=== PATIENT | male | born 1950 | race African-American/Black ===

== ENCOUNTER 2022-09-27 11:09 | Emergency (ER) | payer MEDICARE ==
[2022-09-27] MEDS ORDERED: cefTRIAXone (ROCEPHIN) 1 GM VIAL ONE (12:27)
[2022-09-27 12:33] LABS: #Eosinphils 0.1 10x3/uL (0.0-0.5); #Monocytes 0.9 10x3/uL (0.0-1.1); #Neutrophils 6.3 10x3/uL (1.5-8.4); %Basophils 0.2 % (0.0-2.0); %Eosinophils 1.2 % (0.0-6.0); %Monocytes 10.8 % (0.0-10.0); %Neutrophils 76.7 % (40.0-75.0); Hematocrit 36.8 % (38.8-50.0); Hemoglobin 12.4 g/dL (13.5-17.5); Mean Corpuscular HGB CONC 33.7 g/dL (32.0-36.0); Mean Corpuscular Hemoglobin 29.9 pg (27.0-33.0); Mean Corpuscular Volume 88.7 fl (81.2-95.1); Mean Platelet Volume 9.9 fl (7.4-10.4); Platelet Count 199 10x3/uL (150-450); RBC Distribution Width 12.4 % (11.5-14.5); Red Blood Cell (RBC) Count 4.15 10x6/uL (4.32-5.72); White Blood Cell (WBC) Count 8.3 10x3/uL (3.5-10.5)
[2022-09-27 12:49] LABS: ALT (SGPT) 45 U/L (8-55); AST (SGOT) 34 U/L (5-34); Albumin 3.8 g/dL (3.4-4.8); Alkaline Phosphatase 91 U/L (40-110); Anion Gap 16 mmol/L (10-20); BUN (Urea Nitrogen) 17 mg/dL (8.4-25.7); Bilirubin, Total 0.5 mg/dL (0.2-1.2); Calc. Creatinine Clearance 0 mL/min (70-130); Calcium 9.1 mg/dL (7.8-10.44); Carbon Dioxide 26 mmol/L (23-31); Chloride 102 mmol/L (98-107); Estimated GFR 48; Globulin 4.1 g/dL (2.4-3.5); Glucose 94 mg/dL (83-110); Potassium 4.9 mmol/L (3.5-5.1); Protein, Total 7.9 g/dL (5.8-8.1); Sodium 139 mmol/L (136-145)
== END 2022-09-27 14:42 | disposition home or self-care (01) ==
LOC: CSHERS 11:09
DX: L02.11 Cutaneous abscess of neck (principal)
CPT/HCPCS: 80053; 85025; 87070; 87205; 90471; 96365; J0696

== ENCOUNTER 2022-09-28 10:37 | Day surgery (SDC) | payer MEDICARE ==
[2022-09-28] MEDS ORDERED: cefTRIAXone (ROCEPHIN) 1 GM VIAL ONE (10:57)
== END 2022-09-28 12:05 | disposition home or self-care (01) ==
LOC: CSHSDC/OP 10:37
PROVIDERS: ATTEND Nurse Practitioner Family
DX: L02.91 Cutaneous abscess, unspecified (principal)
CPT/HCPCS: J0696

== ENCOUNTER 2022-10-01 10:31 | Day surgery (SDC) | payer MEDICARE ==
[2022-10-01] MEDS ORDERED: cefTRIAXone (ROCEPHIN) 1 GM VIAL ONE (11:17)
== END 2022-10-01 11:55 | disposition home or self-care (01) ==
LOC: CSHSDC/OP 10:31
PROVIDERS: ATTEND Pathology Anatomic Pathology & Clinical Pathology
DX: L02.91 Cutaneous abscess, unspecified (principal)
CPT/HCPCS: J0696

== ENCOUNTER 2022-10-02 10:33 | Day surgery (SDC) | payer MEDICARE ==
[2022-10-02] MEDS ORDERED: cefTRIAXone (ROCEPHIN) 1 GM VIAL ONE (10:48)
== END 2022-10-02 12:10 | disposition home or self-care (01) ==
LOC: CSHSDC/OP 10:33
PROVIDERS: ATTEND Pathology Anatomic Pathology & Clinical Pathology
DX: L02.91 Cutaneous abscess, unspecified (principal)
CPT/HCPCS: J0696

== ENCOUNTER 2022-10-03 10:32 | Day surgery (SDC) | payer MEDICARE ==
[2022-10-03] MEDS ORDERED: cefTRIAXone (ROCEPHIN) 1 GM VIAL ONE (10:40)
== END 2022-10-03 11:45 | disposition home or self-care (01) ==
LOC: CSHSDC/OP 10:32
PROVIDERS: ATTEND Pathology Anatomic Pathology & Clinical Pathology
DX: L02.91 Cutaneous abscess, unspecified (principal)
CPT/HCPCS: J0696